=== PATIENT | female | born 1930 | race Caucasian/White ===

== ENCOUNTER → 2018-05-06 | Outpatient (REF) | payer MEDICARE, BC ==
[~2018-05-06] MED LIST: AMOXICILLIN875 MG OR; AMOXICILLIN875 MG PO; B-12500 MC1 PO; CHOND PO; COD LIVER; COLD; CYTOMEL5 MCG PO; DETROL LA4 MG PO; GLUCOS PO; GLUCOSAMINE1500 COM OR; KEFLEX250 MG PO; LEVOTHYROXIN50 MCG PO; MOTRIN200 MG PO; MUCUS RELIEF; MULTI VIT PO; SYNTHROID100 MCG PO; SYNTHROID50 MCG PO; SYNTHROID75 MCG PO; VITAMIN B6250 MG PO; ZOFRAN4 MG/TAB PO; [UNRECOGNIZED DRUG - OTHER]
== END | disposition home or self-care (01) ==
LOC: DI 10:02
PROVIDERS: ATTEND Orthopaedic Surgery
DX: M25.552 Pain in left hip (principal); M16.12 Unilateral primary osteoarthritis, left hip

== ENCOUNTER 2019-10-22 09:03 | Emergency (ER) | payer MEDICARE, BC ==
[~2019-10-22] VITALS: Ht 152.4 cm; Wt 68.0 kg
[~2019-10-22 09:03] MED LIST changes: -CHOND PO; -GLUCOS PO; +GLUCOS/CHON2 PO
[2019-10-22] MEDS ORDERED: LEVOTHYROXIN75 MCG PO (09:16)
[2019-10-22] MEDS ORDERED: ASPIRIN81 MG PO (09:16)
[2019-10-22] MEDS ORDERED: MYRBETRIQ50 MG PO (09:16)
[2019-10-22] MEDS ORDERED: FUROSEMIDE20 MG PO (09:17)
[2019-10-22 09:33] LABS: HEMATOCRIT 40.3 % (37.0-47.0); HEMOGLOBIN 12.8 g/dl (12.0-16.0); IMMATURE GRANULOCYTES 0.5 % (0.0-5.0); MEAN CELL VOLUME 94.8 fL CALC (80.0-100.0); MEAN CORPUSCULAR HGB 30.1 pG CALC (26.0-32.0); MEAN CORPUSCULAR HGB CONC 31.8 g/dL CAL (32.0-36.0); NEUT# 2.88 thou/uL (2.00-7.15); RED BLOOD COUNT 4.25 mill/uL (4.20-5.60); RED CELL DISTRI WIDTH 13.1 % (11.5-15.5)
[2019-10-22 09:52] LABS: URINE BILIRUBIN - DIPSTICK NEGATIVE (NEGATIVE); URINE BLOOD DIPSTICK NEGATIVE (NEGATIVE); URINE COLOR YELLOW; URINE GLUCOSE - DIPSTICK NEGATIVE (NEGATIVE); URINE KETONE NEGATIVE (NEGATIVE); URINE NITRITE - DIPSTICK NEGATIVE (Negative); URINE PROTEIN - DIPSTICK NEGATIVE (NEG-TRACE); URINE UROBILINOGEN - DIPSTICK 0.2 E.U./dL (0.2)
[2019-10-22 09:54] LABS: URINE LEUK ESTERASE TRACE (NEGATIVE)
[2019-10-22 10:04] LABS: ALBUMIN 4.3 g/dL (3.2-5.0); BILIRUBIN, TOTAL 0.6 mg/dL (0.0-1.4); CREATININE 1.3 mg/dL (0.5-1.0); POTASSIUM 3.9 mmol/l (3.5-5.1); TOTAL PROTEIN 7.1 g/dL (6.3-8.2)
[2019-10-22 11:15] VITALS: BP 158/69
== END 2019-10-22 11:15 | disposition left against medical advice (07) ==
LOC: ED 09:03 → ED-I 11:00 → ED 11:15
PROVIDERS: Emergency Medicine
DX: R00.2 Palpitations (principal); I11.0 Hypertensive heart disease with heart failure; I50.9 Heart failure, unspecified; E03.9 Hypothyroidism, unspecified; Z91.19 Patient's noncompliance with other medical treatment and regimen

== ENCOUNTER 2020-10-09 14:36 | Emergency (ER) | payer OTHER, MEDICARE, BC ==
[~2020-10-09 14:36] MED LIST changes: +ASPIRIN81 MG PO; +FUROSEMIDE20 MG PO; +LEVOTHYROXIN75 MCG PO; +MYRBETRIQ50 MG PO
[2020-10-09 15:30] LABS: ALBUMIN 4.2 g/dL (3.2-5.0); BILIRUBIN, TOTAL 0.6 mg/dL (0.0-1.4); CREATININE 1.2 mg/dL (0.5-1.0); HEMATOCRIT 40.1 % (37.0-47.0); HEMOGLOBIN 12.9 g/dl (12.0-16.0); MEAN CELL VOLUME 95.9 fL CALC (80.0-100.0); MEAN CORPUSCULAR HGB 30.9 pG CALC (26.0-32.0); MEAN CORPUSCULAR HGB CONC 32.2 g/dL CAL (32.0-36.0); NEUT# 2.33 thou/uL (2.00-7.15); POTASSIUM 4.4 mmol/l (3.5-5.1); RED BLOOD COUNT 4.18 mill/uL (4.20-5.60); RED CELL DISTRI WIDTH 12.9 % (11.5-15.5); TOTAL PROTEIN 7.5 g/dL (6.3-8.2)
[2020-10-09 15:41] LABS: IMMATURE GRANULOCYTES 9.8 % (0.0-5.0)
[2020-10-09] MEDS ORDERED: LIPOFLAVOVIT PO (20:55)
[2020-10-10 00:55] VITALS: BP 192/69
== END 2020-10-10 00:55 | disposition short-term general hospital (02) | DRG 552 ==
LOC: ED 14:36
PROVIDERS: Family Medicine
DX: M54.2 Cervicalgia (principal); I11.0 Hypertensive heart disease with heart failure; I50.9 Heart failure, unspecified; V44.5XXA Car driver injured in collision with heavy transport vehicle or bus in traffic accident, initial encounter
CPT/HCPCS: Q9967

== ENCOUNTER 2021-07-30 12:31 | Emergency (ER) | payer MEDICARE, BC ==
[~2021-07-30] VITALS: Ht 152.4 cm; Wt 63.6 kg
[~2021-07-30 12:31] MED LIST changes: +LIPOFLAVOVIT PO
[2021-07-30 12:44] VITALS: BP 216/100
[2021-07-30 12:45] VITALS: BP 210/108
[2021-07-30 13:15] VITALS: BP 194/124
[2021-07-30 13:16] LABS: HEMATOCRIT 39.5 % (37.0-47.0); HEMOGLOBIN 12.9 g/dl (12.0-16.0); MEAN CELL VOLUME 95.9 fL CALC (80.0-100.0); MEAN CORPUSCULAR HGB 31.3 pG CALC (26.0-32.0); MEAN CORPUSCULAR HGB CONC 32.7 g/dL CAL (32.0-36.0); NEUT# 2.37 thou/uL (2.00-7.15); RED BLOOD COUNT 4.12 mill/uL (4.20-5.60); RED CELL DISTRI WIDTH 12.7 % (11.5-15.5)
[2021-07-30 13:23] LABS: ALBUMIN 4.3 g/dL (3.2-5.0); ALKALINE PHOSPHATASE 90 u/l (38-126); ANION GAP 14 (6-22 (CALC)); BILIRUBIN, TOTAL 0.7 mg/dL (0.0-1.4); BUN 23 mg/dL (8-23); BUN/CREATININE RATIO 22 (12-20 (CALC)); CARBON DIOXIDE 23 mmol/l (22-30); CHLORIDE 108 mmol/l (95-108); GFR 52 ML/MIN (>=60 (CALC)); GFR FOR AFR.AMER. > 60 ML/MIN (>=60 (CALC)); POTASSIUM 4.2 mmol/l (3.5-5.1); SGOT/AST 30 u/l (9-36); SODIUM 141 mmol/l (137-146); TOTAL PROTEIN 7.6 g/dL (6.3-8.2)
[2021-07-30 13:29] VITALS: BP 170/139
[2021-07-30 13:32] LABS: IMMATURE GRANULOCYTES 12.3 % (0.0-5.0)
[2021-07-30 13:41] LABS: ACT PARTIAL THROMBO TIME 23.9 SECONDS (20.0-32.5)
[2021-07-30 14:31] VITALS: BP 148/67
[2021-07-30 14:40] VITALS: BP 148/67
== END 2021-07-30 14:52 | disposition home or self-care (01) ==
LOC: ED 12:31
PROC: 0HQ0XZZ Repair Scalp Skin, External Approach (ICD-10-PCS; principal; 2021-07-30)
DX: S01.01XA Laceration without foreign body of scalp, initial encounter (principal); S16.1XXA Strain of muscle, fascia and tendon at neck level, initial encounter; S50.811A Abrasion of right forearm, initial encounter; I10 Essential (primary) hypertension; W01.0XXA Fall on same level from slipping, tripping and stumbling without subsequent striking against object, initial encounter; Y92.22 Religious institution as the place of occurrence of the external cause

== ENCOUNTER 2022-07-20 10:15 | Emergency (ER) | payer MEDICARE, BC ==
[2022-07-20] VITALS (18 sets, daily range): BP systolic 135–164; BP diastolic 64–126
[~2022-07-20] VITALS: Ht 152.4 cm; Wt 60.7 kg
[2022-07-20 11:20] LABS: ALBUMIN 4.6 g/dL (3.2-5.0); CREATININE 1.1 mg/dL (0.5-1.0); POTASSIUM 4.4 mmol/l (3.5-5.1)
[2022-07-20 11:23] LABS: HEMATOCRIT 42.8 % (37.0-47.0); HEMOGLOBIN 13.9 g/dl (12.0-16.0); MEAN CELL VOLUME 94.7 fL CALC (80.0-100.0); MEAN CORPUSCULAR HGB 30.8 pG CALC (26.0-32.0); MEAN CORPUSCULAR HGB CONC 32.5 g/dL CAL (32.0-36.0); PLATELET COUNT 136 thou/uL (130-400); RED BLOOD COUNT 4.52 mill/uL (4.20-5.60); RED CELL DISTRI WIDTH 12.4 % (11.5-15.5)
[2022-07-20 11:31] LABS: BILIRUBIN, TOTAL 0.8 mg/dL (0.02-1.3)
[2022-07-20 11:33] LABS: IMMATURE GRANULOCYTES 15.1 % (0.0-5.0); MANUAL DIFFERENTIAL YES
[2022-07-20 11:38] LABS: PROTHROMBIN TIME 9.7 SECONDS (9.0-12.5)
[2022-07-20 11:46] LABS: BAND 15 % (0-8)
[2022-07-20 11:47] LABS: PLATELET ESTIMATE NORMAL
[2022-07-20 12:00] LABS: TSH, 3RD GENERATION 0.31 uIU/mL (0.47 - 4.68)
[2022-07-20 14:15] LABS: URINE BILIRUBIN - DIPSTICK NEGATIVE (NEGATIVE); URINE BLOOD DIPSTICK TRACE-INTACT (NEGATIVE); URINE COLOR YELLOW; URINE GLUCOSE - DIPSTICK NEGATIVE (NEGATIVE); URINE KETONE TRACE mg/dL (NEGATIVE); URINE LEUK ESTERASE SMALL (NEGATIVE); URINE NITRITE - DIPSTICK NEGATIVE (Negative); URINE PH 6.5 (4.5-8.0); URINE PROTEIN - DIPSTICK 30 mg/dL (NEG-TRACE); URINE UROBILINOGEN - DIPSTICK 0.2 E.U./dL (0.2)
[2022-07-20 14:16] LABS: URINE BACTERIA FEW hpf; URINE EPITHELIAL CELLS MODERATE EPI/hpf (0-FEW); URINE RBC 0-2 RBC/hpf (0-5)
== END 2022-07-20 16:06 | disposition short-term general hospital (02) ==
LOC: ED 10:15
PROVIDERS: Family Medicine
DX: I21.4 Non-ST elevation (NSTEMI) myocardial infarction (principal); G45.9 Transient cerebral ischemic attack, unspecified; I11.0 Hypertensive heart disease with heart failure; I50.9 Heart failure, unspecified; E03.9 Hypothyroidism, unspecified; Z20.822 Contact with and (suspected) exposure to COVID-19
CPT/HCPCS: J1650; Q9967

== ENCOUNTER 2022-07-24 08:47 | Observation (INO) | payer MEDICARE, BC ==
[2022-07-24] VITALS (17 sets, daily range): BP systolic 98–158; BP diastolic 48–79
[~2022-07-24] VITALS: Ht 152.4 cm; Wt 60.0 kg
[2022-07-24] MEDS ORDERED: PLAVIX75 MG PO (09:34)
[2022-07-24] MEDS ORDERED: DULOXETINE HCL20 MG (09:35)
[2022-07-24] MEDS ORDERED: NITROFURANTOIN100 M1 PO (09:35)
[2022-07-24 10:01] LABS: ALKALINE PHOSPHATASE 78 u/l (38-126); ANION GAP 13 (6-22 (CALC)); BILIRUBIN, TOTAL 0.7 mg/dL (0.02-1.3); BUN 19 mg/dL (8-23); BUN/CREATININE RATIO 18 (12-20 (CALC)); CARBON DIOXIDE 25 mmol/l (22-30); CHLORIDE 104 mmol/l (95-108); GFR FOR AFR.AMER. > 60 ML/MIN (>=60 (CALC)); GFR OTHER RACES 52 ML/MIN (>=60 (CALC)); POTASSIUM 3.9 mmol/l (3.5-5.1); SGOT/AST 38 u/l (9-36); SODIUM 138 mmol/l (137-146); TOTAL PROTEIN 6.9 g/dL (6.3-8.2)
[2022-07-24 10:17] LABS: BASO% 0.3 % (0-3); EOS% 0.3 % (0-8); HEMATOCRIT 38.8 % (37.0-47.0); HEMOGLOBIN 12.6 g/dl (12.0-16.0); LYMPH% 2.1 % (15-41); MEAN CELL VOLUME 93.7 fL CALC (80.0-100.0); MEAN CORPUSCULAR HGB 30.4 pG CALC (26.0-32.0); MEAN CORPUSCULAR HGB CONC 32.5 g/dL CAL (32.0-36.0); NEUT# 15.19 thou/uL (2.00-7.15); NEUT% 79.5 % (42-76); RED BLOOD COUNT 4.14 mill/uL (4.20-5.60); RED CELL DISTRI WIDTH 12.5 % (11.5-15.5)
[2022-07-24 10:20] LABS: IMMATURE GRANULOCYTES 8.8 % (0.0-5.0)
[2022-07-24 10:23] LABS: URINE BILIRUBIN - DIPSTICK NEGATIVE (NEGATIVE); URINE COLOR YELLOW; URINE GLUCOSE - DIPSTICK NEGATIVE (NEGATIVE); URINE KETONE NEGATIVE (NEGATIVE); URINE LEUK ESTERASE NEGATIVE (NEGATIVE); URINE PROTEIN - DIPSTICK TRACE mg/dL (NEG-TRACE); URINE UROBILINOGEN - DIPSTICK 0.2 E.U./dL (0.2)
[2022-07-24 10:35] LABS: URINE BLOOD DIPSTICK TRACE-INTACT (NEGATIVE); URINE NITRITE - DIPSTICK NEGATIVE (Negative)
[2022-07-25 04:09] VITALS: BP 132/65
[2022-07-25 05:57] LABS: BASO% 0.6 % (0-3); HEMATOCRIT 38.7 % (37.0-47.0); HEMOGLOBIN 12.6 g/dl (12.0-16.0); IMMATURE GRANULOCYTES 9.4 % (0.0-5.0); LYMPH% 11.8 % (15-41); MEAN CELL VOLUME 95.1 fL CALC (80.0-100.0); MEAN CORPUSCULAR HGB CONC 32.6 g/dL CAL (32.0-36.0); MONO% 11.5 % (2-13); NEUT# 5.43 thou/uL (2.00-7.15); NEUT% 62.7 % (42-76); RED BLOOD COUNT 4.07 mill/uL (4.20-5.60); RED CELL DISTRI WIDTH 12.6 % (11.5-15.5)
[2022-07-25 06:08] LABS: ALBUMIN 3.7 g/dL (3.2-5.0); CREATININE 1.3 mg/dL (0.5-1.0); POTASSIUM 3.3 mmol/l (3.5-5.1); TOTAL PROTEIN 6.7 g/dL (6.3-8.2)
[2022-07-25 06:29] LABS: BILIRUBIN, TOTAL 0.3 mg/dL (0.02-1.3)
[2022-07-25 07:27] VITALS: BP 134/59
[2022-07-25 11:39] VITALS: BP 146/68
[2022-07-25 16:04] VITALS: BP 132/62
[2022-07-25 18:59] VITALS: BP 124/60
[2022-07-26 00:10] VITALS: BP 131/64
[2022-07-26 04:29] VITALS: BP 139/60
[2022-07-26 06:22] LABS: BASO% 0.9 % (0-3); HEMATOCRIT 37.9 % (37.0-47.0); HEMOGLOBIN 12.3 g/dl (12.0-16.0); IMMATURE GRANULOCYTES 5.3 % (0.0-5.0); LYMPH% 19.1 % (15-41); MEAN CORPUSCULAR HGB 30.5 pG CALC (26.0-32.0); MEAN CORPUSCULAR HGB CONC 32.5 g/dL CAL (32.0-36.0); NEUT# 3.93 thou/uL (2.00-7.15); NEUT% 61.7 % (42-76); RED BLOOD COUNT 4.03 mill/uL (4.20-5.60); RED CELL DISTRI WIDTH 12.6 % (11.5-15.5)
[2022-07-26 06:37] LABS: ALBUMIN 3.4 g/dL (3.2-5.0); BILIRUBIN, TOTAL 0.4 mg/dL (0.02-1.3); CREATININE 1.2 mg/dL (0.5-1.0); POTASSIUM 3.7 mmol/l (3.5-5.1)
[2022-07-26 06:40] VITALS: BP 130/44
[2022-07-26 11:22] VITALS: BP 113/57
[2022-07-26] MEDS ORDERED: LASIX 20 MG TAB20 MG PO (13:15)
[2022-07-26] MEDS ORDERED: KEFLEX500 MG PO (13:16)
[2022-07-26] MEDS ORDERED: K-TABS10 MEQ PO (13:17)
== END 2022-07-26 14:35 | disposition home health service (06) ==
LOC: ED 08:47 → ED-I 12:00 → ED 12:41 → MS2 12:42
PROVIDERS: Family Medicine; Nurse Practitioner Family; ADMIT Internal Medicine; ATTEND Internal Medicine
DX: I11.0 Hypertensive heart disease with heart failure (principal); I50.31 Acute diastolic (congestive) heart failure; N30.00 Acute cystitis without hematuria; I21.4 Non-ST elevation (NSTEMI) myocardial infarction; I25.10 Atherosclerotic heart disease of native coronary artery without angina pectoris; J43.9 Emphysema, unspecified; E78.5 Hyperlipidemia, unspecified; E03.9 Hypothyroidism, unspecified; B96.1 Klebsiella pneumoniae [K. pneumoniae] as the cause of diseases classified elsewhere; Z86.73 Personal history of transient ischemic attack (TIA), and cerebral infarction without residual deficits; Z20.822 Contact with and (suspected) exposure to COVID-19
CPT/HCPCS: J1650